=== PATIENT | male | born 1955 | race Caucasian/White ===

== ENCOUNTER 2019-03-04 16:48 | Emergency (ER) | payer SELFPAY ==
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
[2019-03-04] MEDS ORDERED: Sodium Chloride 0.9% 500 ML IV ONE (17:16)
[2019-03-04] MEDS ORDERED: Iopamidol 612 MG/ML 100 ML Bottle IVPUSH ONE (17:30)
[2019-03-04] MEDS ORDERED: Sodium Chloride 0.9% 1,000 ML IV SCH (17:30)
[2019-03-04] MEDS ORDERED: Iopamidol 612 MG/ML 50 ML SDV IVPUSH ONE (17:30)
[2019-03-04] MEDS ORDERED: Sodium Chloride 0.9% 10 ML Syringe FLUSH ONE (17:30)
--- NOTE | 2019-03-04 19:10 | CT ---
Head CT Technique: Multiple axial sections through the brain were obtained. Intravenous contrast was not utilized. Comparison: No previous intracranial imaging. Findings: Ventricles along with basal cisterns and sulci over the convexities appear within normal limits for the patient's age. No abnormal parenchymal densities are seen. No evidence of intracranial hemorrhage. No midline shift or mass effect is seen. Bone window settings were reviewed which show no acute calvarial abnormality. Rounded soft tissue densities are noted within both inferior maxillary sinuses that have the appearance of retention cysts and are felt to be incidental and chronic. Largest finding is 1.5 cm. No acute calvarial abnormality is seen. Mastoid sinuses show nothing acute. Impression: 1. Sinus findings which appear to be chronic. 2. No acute intracranial abnormality is appreciated. Diagnostic code #1
--- NOTE | 2019-03-04 19:10 | CT ---
CT cervical spine Technique: Multiple axial sections through the cervical spine were obtained. Study was obtained from above C1 inferiorly to the bottom of T2. Reconstructed sagittal and coronal images were obtained. Comparison: No previous cervical spine imaging. Findings: Artifact is noted secondary to photon attenuation from patient body habitus. Mild degenerative change is scattered throughout the apophyseal joints within the cervical spine. Mild scattered anterior endplate osteophytes are seen. Mild disc space narrowing is seen at C4-5 and posteriorly at C5-6 as well as at C6-7. Small bony density is seen posterior to the spinous process of C7 which appears well-corticated and old. Additional bony density is seen posterior to the T2 spinous process which is also well-corticated and old. No fracture is seen. No abnormal subluxation is identified. Mild scoliosis is seen. Mild scattered degenerative change is noted within the uncovertebral joints. No bony central or bony neural foraminal stenosis is seen. Impression: 1. Degenerative change and slight scoliosis. 2. Nothing acute is appreciated on CT study of the cervical spine. Diagnostic code #2
--- NOTE | 2019-03-04 19:10 | CT ---
CT neck Technique: Multiple axial sections of the neck were obtained. Intravenous contrast was utilized. Findings: Submandibular and parotid salivary glands are unremarkable. Retention cysts are again noted within both inferior maxillary sinuses. Right and left globes are symmetric. Parapharyngeal soft tissues are symmetric. Prevertebral soft tissues are normal. Epiglottis is normal. Impression: 1. Nothing acute is appreciated on CT study of the neck. Diagnostic code #2
--- NOTE | 2019-03-04 19:10 | CT ---
CT chest Technique: Multiple axial sections were obtained from above the lung apices inferiorly through the lung bases. Intravenous contrast was utilized. Comparison: No previous chest imaging is available. Findings: Aorta shows minimal atherosclerotic calcification. No aneurysm is seen. No adenopathy is seen within the mediastinum or hilar regions. Minimal coronary artery calcification is seen. No pericardial thickening is seen. Lungs are clear. No acute parenchymal change is seen. Bone window settings were reviewed which show slight compression deformities within T11 and T12 within the superior endplates. These are age indeterminant. No other acute appearing abnormality is seen within the osseous system. Impression: 1. Slight superior endplate concavities within T11 and T12. Uncertain as to the age of these findings. MRI would be needed to determine age of these findings if clinically indicated. 2. No other acute appearing abnormality is seen on CT study of the chest. Diagnostic code #3 CT abdomen and pelvis Technique: Multiple axial sections were obtained from above the dome of the diaphragm inferiorly through the pubic symphysis. Intravenous contrast was utilized. No oral contrast was utilized. Comparison: No prior abdominal imaging is available. Findings: Liver contains no focal abnormality. Spleen appears within normal limits. Adrenal glands show no nodule. Pancreas is within normal limits. Kidneys show evidence of cysts. Largest cyst is within the left kidney measuring 2.3 cm. No ureteral dilatation is seen. Aorta shows diffuse atherosclerotic calcification without aneurysm. Atherosclerotic calcification continues into the iliac vessels. No retroperitoneal adenopathy or mesenteric abnormalities are seen. No pelvic mass or adenopathy is seen. Delayed images show contrast within the distal ureters and within the bladder. Bone window settings were reviewed which show slight endplate concavity within the superior L3 vertebral body which is age indeterminate. No other acute osseous abnormality is seen. Degenerative change is scattered within the spine. Impression: 1. Superior endplate concavity of L3. This is age indeterminate. MRI would be needed to further age this finding if clinically indicated. 2. No other acute osseous abnormality is seen. 3. No acute intra-abdominal or intrapelvic abnormality is seen. Other incidental findings as noted above. Diagnostic code #3
--- NOTE | 2019-03-04 19:17 | CT ---
CT lumbar spine Technique: Multiple axial sections through the lumbar spine were obtained. Findings: Slight superior endplate concavity is seen within L3. Age of this is indeterminate. Other vertebral body heights are maintained. Moderate disc space narrowing at L4-5 and more severe disc space narrowing at L5-S1. Vacuum phenomena is seen within the L4-5 disc. Mild degenerative change is scattered throughout the lumbar spine. No discrete fracture line is appreciated. No abnormal subluxation is seen. No focal disc herniation is seen. Slight circumferential disc bulge is noted at L3-4 causing mild central canal stenosis. Mild central canal stenosis is also noted at L4-5 due to moderate circumferential disc bulge. Impression: 1. Mild superior endplate concavity within L3. Age of this is indeterminate. MRI would be needed to further define age if clinically indicated. 2. Degenerative change. No other acute abnormality is seen. Diagnostic code #3
--- NOTE | 2019-03-04 19:19 | CT ---
CT thoracic spine Technique: Multiple axial sections through the thoracic spine were obtained. Reconstructed coronal and sagittal images were obtained. Findings: Slight superior endplate concavities are seen within T11 and T12. Age of these are indeterminate. Other vertebral body heights are maintained. No discrete fracture line is seen. No central canal stenosis or neural foraminal stenosis is seen. Slight endplate osteophytes are seen mostly within the mid thoracic spine. Impression: 1. Endplate concavities are seen superiorly within T11 and T12. Age of these are indeterminate. MRI would be needed to further age these findings if clinically indicated. 2. Mild degenerative change. Nothing else acute is appreciated. Diagnostic code #3
== END 2019-03-04 20:30 | disposition home or self-care (01) ==
LOC: JD.ED 16:48
DX: S22.088A Other fracture of T11-T12 vertebra, initial encounter for closed fracture (principal); S32.038A Other fracture of third lumbar vertebra, initial encounter for closed fracture; R07.89 Other chest pain; E11.9 Type 2 diabetes mellitus without complications; Z79.84 Long term (current) use of oral hypoglycemic drugs; Z79.82 Long term (current) use of aspirin; V68.5XXA Driver of heavy transport vehicle injured in noncollision transport accident in traffic accident, initial encounter; Y92.410 Unspecified street and highway as the place of occurrence of the external cause
CPT/HCPCS: 36415; 70450; 70491; 71260; 72125; 72128; 72131; 74177; 80053; 81001; 82962; 85007; 85027; 93005; 96360; 96361; 99285; J7040; Q9967; 99284

== ENCOUNTER 2024-10-02 21:37 | Emergency (ER) | payer SELFPAY ==
[2024-10-02] MEDS ORDERED: Sodium Chloride 0.9% 10 ML Syringe FLUSH PRN (22:08)
[2024-10-02 22:15] LABS: BASOPHILS PERCENT AUTO 0.7 % (0.0-1.0); EOSINOPHILS ABSOLUTE AUTO 0.2 K/mm3 (0.0-0.4); EOSINOPHILS PERCENT AUTO 3.2 % (0.0-6.0); HEMATOCRIT 47.1 % (42.0-52.0); HEMOGLOBIN 15.1 gm/dl (14.0-18.0); IMMATURE GRAN ABSOLUTE AUTO 0.01 K/mm3 (0.00-0.05); IMMATURE GRAN PERCENT AUTO 0.2 % (0.0-0.4); LYMPHOCYTES ABSOLUTE AUTO 1.2 K/mm3 (1.0-4.8); LYMPHOCYTES PERCENT AUTO 20.9 % (24.0-44.0); MEAN CORPUSCULAR HEMOGLOBIN 28.3 pg (28.0-32.0); MEAN CORPUSCULAR HGB CONC 32.1 g/dl (32.0-36.0); MEAN CORPUSCULAR VOLUME 88.2 fl (83.0-99.0); MEAN PLATELET VOLUME 9.7 fl (9.4-12.4); MONOCYTES ABSOLUTE AUTO 0.5 K/mm3 (0.0-0.8); MONOCYTES PERCENT AUTO 9.5 % (0.0-8.0); NEUTROPHILS ABSOLUTE AUTO 3.7 K/mm3 (1.8-7.7); NEUTROPHILS PERCENT AUTO 65.5 % (41.0-71.0); PLATELET COUNT,PLT 205 K/mm3 (150-400); RED BLOOD CELL COUNT 5.34 M/mm3 (4.52-5.90)
[2024-10-02] MEDS: Alum Hydrox/Mag Hydrox/Simeth 30 ML, Lidocaine 2% 15 ML PO ONE (22:27)
[2024-10-02] MEDS: Famotidine 20 MG Tab PO ONE (22:27)
[2024-10-02] MEDS: Aspirin 81 MG Tab.Chew PO ONE (22:27)
[2024-10-02 22:40] LABS: A/G RATIO 0.9 (1-2); ALBUMIN 3.3 g/dl (3.4-5.0); BILIRUBIN TOTAL 0.3 mg/dL (0.2-1.0); BUN/CREATININE RATIO 8.7 (14-18); CALCIUM 8.7 mg/dL (8.5-10.1); CREATININE 1.5 mg/dL (0.7-1.3); EST CRCL DRUG DOSING (CG) 48.75 mL/min; PROTEIN TOTAL,TP 6.8 g/dl (6.4-8.2)
[2024-10-03] MEDS: Sodium Chloride 0.9% 1,000 ML IV ONE (01:50)
[2024-10-03] MEDS: Heparin Sodium 5,000 Units/ML Vial IVPUSH ONE (02:55)
[2024-10-03] MEDS: Heparin Sodium/D5W 250 ML IV SCH (02:55)
[2024-10-03 03:26] LABS: INR 1.05; PROTHROMBIN TIME 11.1 SECONDS (9.7-12.0)
[2024-10-03 03:27] LABS: PTT,PARTIAL THROMBOPLSTIN TIME 82.6 SECONDS (21.7-31.4)
== END 2024-10-03 03:51 ==
LOC: JD.ED 21:37 → MERGE 21:37 → JD.ED 10-03 03:51
DX: I21.4 Non-ST elevation (NSTEMI) myocardial infarction (principal); E11.65 Type 2 diabetes mellitus with hyperglycemia; R79.89 Other specified abnormal findings of blood chemistry; Z79.82 Long term (current) use of aspirin; Z79.84 Long term (current) use of oral hypoglycemic drugs; Z79.899 Other long term (current) drug therapy
CPT/HCPCS: 36415; 71045; 80053; 83690; 83880; 84484; 85025; 85610; 85730; 93005; 96361; 96365; 99285; A9270; J1644; J7030; 93010